=== PATIENT | male | born 1995 | race Caucasian/White ===

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

== ENCOUNTER 2018-04-05 13:36 | Emergency (ER) | payer BC ==
[~2018-04-05] VITALS: Ht 175.3 cm; Wt 84.1 kg
[2018-04-05] MEDS ORDERED: ADVAIR DISKUS1 DS2 IH (13:42)
[2018-04-05] MEDS ORDERED: PROAIR HFA0.09 MG/AC IH (13:42)
[2018-04-05 15:06] VITALS: BP 125/77
[2018-04-05] MEDS ORDERED: NORCO 325 MG-51 TA1 PO (15:30)
== END 2018-04-05 15:37 | disposition home or self-care (01) ==
LOC: ED 13:36
DX: S62.316A Displaced fracture of base of fifth metacarpal bone, right hand, initial encounter for closed fracture (principal); W23.1XXA Caught, crushed, jammed, or pinched between stationary objects, initial encounter; Y92.009 Unspecified place in unspecified non-institutional (private) residence as the place of occurrence of the external cause; J45.909 Unspecified asthma, uncomplicated
CPT/HCPCS: J1885

== ENCOUNTER → 2019-04-30 | Outpatient (CLI) | payer BC ==
[~2019-04-30] MED LIST: ADVAIR DISKUS1 DS2 IH; NORCO 325 MG-51 TA1 PO; PROAIR HFA0.09 MG/AC IH
== END ==
LOC: LAB 19:36
DX: L03.90 Cellulitis, unspecified (principal)

== ENCOUNTER → 2019-12-15 | Outpatient (CLI) | payer BC | LOC: LAB 14:25 | DX: J45.909 Unspecified asthma, uncomplicated (principal); S06.0X9A Concussion with loss of consciousness of unspecified duration, initial encounter; J06.9 Acute upper respiratory infection, unspecified; M79.10 Myalgia, unspecified site ==

== ENCOUNTER → 2024-04-19 | Outpatient (CLI) | payer BC ==
[2024-04-19 17:23] LABS: CALCIUM 9.6 mg/dL (8.3-10.5)
== END ==
LOC: LAB 16:53
PROVIDERS: Family Medicine
DX: Z13.220 Encounter for screening for lipoid disorders (principal); Z13.1 Encounter for screening for diabetes mellitus